=== PATIENT | male | born 1945 | race Caucasian/White ===

== ENCOUNTER 2016-08-04 06:29 | Emergency (ER) | payer OTHER ==
[~2016-08-04] VITALS: Ht 165.1 cm; Wt 92.0 kg
[~2016-08-04 06:29] MED LIST: LOVA10TA63 PO; WARF3TAB PO; ZOLP5TAB PO
[2016-08-04 06:32] VITALS: Ht 165.1 cm; Wt 92.0 kg
[2016-08-04] MEDS ORDERED: KETOROLAC 30 MG INJ IM STA (06:46)
--- NOTE | 2016-08-04 08:43 | RADRPT ---
PROCEDURE: CT Lumbar Spine. CLINICAL INDICATION: Low back pain TECHNIQUE: The study was performed on a multidetector CT scanner. Volumetric data was obtained th rough the lumbar spine and reformatted in the axial plane. Sagittal and coronal reformations were cr eated from the raw axial data. One or more the following does reduction techniques were utilized: Au tomated exposure control, adjustment of the mA/ or kV according to patient's size, or use of iterati ve reconstruction technique. The images were reviewed on a PACS workstation. CTDI 30.52 mGy. DLP 1070.61 mGy-cm. COMPARISON: No prior studies are available for comparison. FINDINGS: The normal lumbar lordosis is preserved. No lumbar subluxation is noted. The vertebral body heights are maintained. The paravertebral soft tissues are unremarkable. T12-L1: The disk is normal in height. No significant disk bulge or protrusion is seen. The central canal and neural foramina appear adequately patent. L1-L2: The disk is mildly decreased in height with anterior osteophytosis. There is [address] sk bulge. Mild bilateral facet arthropathy is noted. These contribute to mild bilateral foraminal narrowing. The central canal appears adequately patent. L2-L3: The disk is normal in height. There is 2-3 mm diffuse disk bulge. Mild bilateral facet art hropathy is noted. These contribute to mild to moderate bilateral foraminal narrowing. The central canal appears adequately patent. L3-L4: The disk is normal in height. Anterior osteophytosis is noted. There is 3-4 mm diffuse disk b ulge. Mild bilateral facet arthropathy is noted. These contribute to moderate bilateral foraminal narrowing. The central canal appears adequately patent. L4-L5: The disk is mildly decreased in height. Anterior osteophytosis is noted. There is 4-5 mm dif fuse disk bulge. Moderate bilateral facet arthropathy is noted. These contribute to mild spinal ca nal narrowing at moderate to marked bilateral foraminal stenosis with probable impingement on exitin g L4 nerve roots. The AP diameter of the spinal canal measures 9 mm. L5-S1: The disk is normal in height. There is 3-4 mm diffuse disk bulge. Mild to moderate bilatera l facet arthropathy is noted. These contribute to moderate bilateral foraminal narrowing. The centr al canal appears adequately patent. Aortoiliac atherosclerotic vascular calcifications are identified. Small bilateral renal punctate calcifications are noted which may represent nonobstructing stones ve rsus vascular calcifications. IMPRESSION: 1. Mild discogenic disease more pronounced at L1-L2 and L4-L5. Multilevel mild to moderate facet ar thropathy more pronounced at L4-5. 2. Multilevel mild to moderate disk bulges which contributes to mild spinal canal narrowing at L4-5 . 3. At L4-L5, mild spinal canal narrowing at moderate to marked bilateral foraminal stenosis with pr obable impingement on exiting L4 nerve roots. 4. Otherwise multilevel mild to moderate foraminal stenosis as outlined in details in findings. 5. Aortoiliac atherosclerotic calcifications. 6. Small bilateral renal punctate calcifications which may represent nonobstructing stones versus v ascular calcifications. RPTAT: [facility] .Grant Stewadr MD, Date Time Electronically viewed and signed by .Grant Steward MD, on 08/04/2016 08:43 .N/
--- NOTE | 2016-08-04 08:48 | ERD ---
ER Documentation Chief Complaint Date/Time DATE: 08/04/16 TIME: 08:47 Chief Complaint back pain after strecthing HPI This is a 71-year-old male presenting to the emergency department complaining of left lumbar back pain for the past 2 days after he was bending down and picking something up. Patient states the pain is moderate to severe, constant worse with movement, he denies any neuro deficits. He denies any saddle anesthesia, bladder or bowel incontinence. Patient states that he has tried Keystone yesterday which has helped a little bit but he did not like the side effect of it. He denies fever, hematuria ROS All systems reviewed and are negative except as per history of present illness. Medications Home Meds Active Scripts Naproxen* (Naprosyn*) 500 Mg Tablet, 500 MG PO BID Y for PAIN AND/OR INFLAMMATION, #30 TAB Prov:CAROLYNN CHAMORRO PA-C 08/04/16 Diazepam* (Valium*) 5 Mg Tablet, 5 MG PO Q8 Y for MUSCLE SPASMS, #30 TAB Prov:CAROLYNN CHAMORRO PA-C 08/04/16 Reported Medications Zolpidem Tartrate* (Ambien*) 5 Mg Tablet, 5 MG PO HS Y for INSOMNIA, TAB 06/06/14 Warfarin Sodium* (Coumadin*) 3 Mg Tablet, 3 MG PO DAILY, TAB 06/06/14 Lovastatin* (Lovastatin*) 10 Mg Tablet, 10 MG PO HS, TAB 04/12/14 Allergies Allergies: Coded Allergies: No Known Allergy (Unverified , 06/06/14) PMhx/Soc History of Surgery: Yes (right shoulder rotator cap surg,july 2013, APPENDECTOMY AT 9YEARS OLD) Anesthesia Reaction: No Hx Neurological Disorder: No Hx Respiratory Disorders: No Hx Cardiac Disorders: Yes (DVT-RLL) Hx Psychiatric Problems: No Hx Miscellaneous Medical Probl: Yes (HYPERLIPIDEMIA, BLEEDING ULCERS) Hx Alcohol Use: Yes (GLASS OF WINE Q NIGHT) Hx Substance Use: No Hx Tobacco Use: No Smoking Status: Never smoker Physical Exam Vitals Vital Signs Date Time Temp Pulse Resp B/P Pulse Ox O2 Delivery O2 Flow Rate FiO2 08/04/16 06:32 98.1 70 18 122/85 99 Physical Exam GENERAL: WD/WN, in no apparent distress, non-toxic appearing HENT: NC/AT EYES: Conjunctiva normal NECK: Supple PULM: Normal labored breathing CV: Good capillary refill GI: Non-distended, no guarding BACK: no deformities noted, normal spinal curvature, TTP on left lumbar region, non-tender on spine midline EXT: No clubbing, cyanosis, or edema NEURO: Moves on all fours, sensation intact, normal gait SKIN: intact PSYCH: Normal mood Results 24 hrs Current Medications Medications (Trade) Dose Ordered Sig/Xander Route PRN Reason Start Time Stop Time Status Last Admin Dose Admin Ketorolac Tromethamine (Toradol) 30 mg ONCE STAT IM 08/04/16 06:46 08/04/16 06:48 DC 08/04/16 06:58 Procedures/MDM This is a 71-year-old male presenting to the emergency room complaining of left lumbar back pain which is likely due to strain and discogenic with disc bulges in the lumbar back. There was no evidence of cauda equina syndrome or other neuro deficits. Patient appears well, afebrile and neurovascular intact. A CT of the lumbar spine was done and did not show any evidence of vertebral fracture or condition that requires admission. Patient is appropriate to be discharged home to follow-up with PCP, orthopedist, physical therapist. In the ED patient was given Toradol he had mild improvement in pain. Diagnostic testing was provided for the patient, discussed with him to return to the ER for any worsening sinus symptoms. Patient understands and agrees with this plan. Prescription for naproxen and Valium was provided. CT lumbar spine: 1. Mild discogenic disease more pronounced at L1-L2 and L4-L5. Multilevel mild to moderate facet arthropathy more pronounced at L4-5 2. Multilevel mild to moderate disk bulges which contributes to mild spinal canal narrowing at L4-5. 3. At L4-L5, mild spinal canal narrowing at moderate to marked bilateral foraminal stenosis with probable impingement on exiting L4 nerve roots. 4. Otherwise multilevel mild to moderate foraminal stenosis as outlined in details in findings. 5. Aortoiliac atherosclerotic calcifications. 6. Small bilateral renal punctate calcifications which may represent nonobstructing stones versus vascular calcifications. Departure Diagnosis: Primary Impression: Bulging disc Additional Impressions: Back pain Back pain location: low back pain Chronicity: acute Back pain laterality: left Sciatica presence: without sciatica Qualified Code: M54.5 - Acute left- sided low back pain without sciatica Injury of back Condition: Stable CAROLYNN CHAMORRO PA-C Aug 04, 2016 08:48
[2016-08-04] MEDS ORDERED: DIAZ-90 PO (09:04)
[2016-08-04] MEDS ORDERED: NAPR-260 PO (09:04)
== END 2016-08-04 09:23 | disposition home or self-care (01) ==
LOC: FTE 06:29
DX: M51.9 Unspecified thoracic, thoracolumbar and lumbosacral intervertebral disc disorder (principal); X50.9XXA Other and unspecified overexertion or strenuous movements or postures, initial encounter; Y92.9 Unspecified place or not applicable; Z79.01 Long term (current) use of anticoagulants
CPT/HCPCS: 72131; 96372; J1885; Z7502